=== PATIENT | female | born 2000 | race African-American/Black ===

== ENCOUNTER 2018-07-16 08:50 | Emergency (ER) | payer BC, OTHER ==
[2018-07-16] MEDS ORDERED: ALBUTEROL 2.5 MG/3 ML NEB SOL ONE (09:27)
--- NOTE | 2018-07-16 09:40 | ER ---
Nurse's Notes [facility] Name: Shanon Wen Age: 18 yrs Sex: Female : 2000 Arrival Date: 07/16/2018 Time: 08:54 Bed 12 Private MD: Diagnosis: Acute Viral Syndrome Presentation: 07/16 09:05 Presenting complaint: Patient states: cough, phlegm, runny nose, sore throat today. iw Transition of care: patient was not received from another setting of care. Onset of symptoms was July 16, 2018. Risk Assessment: Do you want to hurt yourself or someone else? Patient reports no desire to harm self or others. Initial Sepsis Screen: Does the patient meet any 2 criteria? No. Patient's initial sepsis screen is negative. Does the patient have a suspected source of infection? No. Patient's initial sepsis screen is negative. Care prior to arrival: None. 09:05 Acuity: KRISS 4 iw 09:05 Method Of Arrival: Ambulatory iw Triage Assessment: 10:00 General: Appears in no apparent distress. Behavior is calm, cooperative. Respiratory: iw Reports cough that is. 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 - Social history:: Smoking status: Patient/guardian denies using tobacco, The patient lives with family. - Family history:: not pertinent. - Ebola Screening: : Patient negative for fever greater than or equal to 101.5 degrees Fahrenheit, and additional compatible Ebola Virus Disease symptoms Patient denies exposure to infectious person Patient denies travel to an Ebola-affected area in the 21 days before illness onset No symptoms or risks identified at this time. - Hospitalizations: : No recent hospitalization is reported. Screenin:00 Abuse screen: Denies threats or abuse. Denies injuries from another. Nutritional iw screening: No deficits noted. Tuberculosis screening: No symptoms or risk factors identified. Fall Risk None identified. Assessment: 09:20 General: Appears in no apparent distress. comfortable. Pain: Denies pain. Neuro: Level iw of Consciousness is awake, alert, obeys commands, Oriented to person, place, time, situation, Moves all extremities. Full function. Cardiovascular: Patient's skin is warm and dry. Respiratory: Airway is patent Respiratory effort is even, unlabored, Breath sounds are clear bilaterally. Respiratory: Reports cough that is productive. GI: No signs and/or symptoms were reported involving the gastrointestinal system. Derm: Skin is intact, is healthy with good turgor. Musculoskeletal: Range of motion: intact in all extremities. Vital Signs: 09:13 BP 123 / 88; Pulse 56; Resp 16; Temp 97.0(TE); Pulse Ox 98% on R/A; Weight 90.72 kg; iw Height 5 ft. 4 in. (162.56 cm); Pain 0/10; 09:13 Body Mass Index 34.33 (90.72 kg, 162.56 cm) iw ED Course: 08:54 Patient arrived in ED. mr 08:56 Sylwia Reyez, RN is Primary Nurse. iw 08:59 Navdeep Warren MD is Attending Physician. wa 09:06 Triage completed. iw 09:21 Arm band placed on. iw 10:00 Patient has correct armband on for positive identification. iw 10:00 No provider procedures requiring assistance completed. Patient did not have IV access iw during this emergency room visit. Administered Medications: 09:20 Drug: Albuterol 2.5 mg Route: Inhalation; iw Outcome: 09:40 Discharge ordered by . wa 10:03 Discharged to home ambulatory. iw 10:03 Condition: good 10:03 Discharge instructions given to patient, Instructed on discharge instructions, follow up and referral plans. medication usage, Demonstrated understanding of instructions, follow-up care, medications, Prescriptions given X 3. 10:04 Patient left the ED. iw Signatures: Amalia Guerra mr Sylwia Reyez RN RN Navdeep Warren MD MD fl Corrections: (The following items were deleted from the chart) 09:21 09:13 Resp 16bpm; 90.72 kg; Height 5 ft. 4 in.; BMI: 34.3; Pain 0/10; iw iw
--- NOTE | 2018-07-16 09:41 | EDPHYS ---
Physician Documentation [facility] Name: Shanon Wen Age: 18 yrs Sex: Female : 2000 Arrival Date: 07/16/2018 Time: 08:54 Bed 12 Private MD: ED Physician Navdeep Warren HPI: 07/16 09:09 This 18 yrs old Black Female presents to ER via Ambulatory with complaints of Cough, wa Congestion. 09:09 The patient or guardian reports cough, that is intermittent, with no sputum, wa congestion. Onset: The symptoms/episode began/occurred 4 day(s) ago. Severity of symptoms: At their worst the symptoms were moderate, in the emergency department the symptoms are unchanged. Modifying factors: The symptoms are alleviated by nothing, the symptoms are aggravated by nothing. Associated signs and symptoms: Pertinent positives: rhinorrhea, sore throat, Pertinent negatives: diarrhea, ear ache, fever, nausea, vomiting. The patient has not experienced similar symptoms in the past. The patient has not recently seen a physician. family members have had similar resp symptoms. 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 - Social history:: Smoking status: Patient/guardian denies using tobacco, The patient lives with family. - Family history:: not pertinent. - Ebola Screening: : Patient negative for fever greater than or equal to 101.5 degrees Fahrenheit, and additional compatible Ebola Virus Disease symptoms Patient denies exposure to infectious person Patient denies travel to an Ebola-affected area in the 21 days before illness onset No symptoms or risks identified at this time. - Hospitalizations: : No recent hospitalization is reported. ROS: 09:11 Eyes: Negative for injury, pain, redness, and discharge, Neck: Negative for injury, wa pain, and swelling, Cardiovascular: Negative for chest pain, palpitations, and edema, Abdomen/GI: Negative for abdominal pain, nausea, vomiting, diarrhea, and constipation, Back: Negative for injury and pain, : Negative for injury, bleeding, discharge, and swelling, MS/Extremity: Negative for injury and deformity, Skin: Negative for injury, rash, and discoloration, Neuro: Negative for headache, weakness, numbness, tingling, and seizure, Psych: Negative for depression, anxiety, suicide ideation, homicidal ideation, and hallucinations. 09:11 Constitutional: Negative for body aches, fatigue, fever, poor PO intake, weight loss. 09:11 ENT: Positive for nose bleed, rhinorrhea, sinus congestion, sore throat, Negative for ear pain, foreign body sensation. 09:11 Respiratory: Positive for cough, with no reported sputum, Negative for shortness of breath. 09:11 All other systems are negative. Exam: 09:12 Constitutional: This is a well developed, well nourished patient who is awake, alert, wa and in no acute distress. Head/Face: Normocephalic, atraumatic. Eyes: Pupils equal round and reactive to light, extra-ocular motions intact. Lids and lashes normal. Conjunctiva and sclera are non-icteric and not injected. Cornea within normal limits. Periorbital areas with no swelling, redness, or edema. Neck: Trachea midline, no thyromegaly or masses palpated, and no cervical lymphadenopathy. Supple, full range of motion without nuchal rigidity, or vertebral point tenderness. No Meningismus. Chest/axilla: Normal chest wall appearance and motion. Nontender with no deformity. No lesions are appreciated. Cardiovascular: Regular rate and rhythm with a normal S1 and S2. No gallops, murmurs, or rubs. Normal PMI, no JVD. No pulse deficits. Abdomen/GI: Soft, non-tender, with normal bowel sounds. No distension or tympany. No guarding or rebound. No evidence of tenderness throughout. Back: No spinal tenderness. No costovertebral tenderness. Full range of motion. Skin: Warm, dry with normal turgor. Normal color with no rashes, no lesions, and no evidence of cellulitis. MS/ Extremity: Pulses equal, no cyanosis. Neurovascular intact. Full, normal range of motion. Neuro: Awake and alert, GCS 15, oriented to person, place, time, and situation. Cranial nerves II-XII grossly intact. Motor strength 5/5 in all extremities. Sensory grossly intact. Cerebellar exam normal. Normal gait. Psych: Awake, alert, with orientation to person, place and time. Behavior, mood, and affect are within normal limits. 09:12 ENT: External ear(s): are unremarkable, TM's: are normal, Nose: is normal, Posterior pharynx: is normal. 09:12 Respiratory: the patient does not display signs of respiratory distress, Respirations: normal, Breath sounds: are clear throughout, Respiratory rate: normal Vital Signs: 09:13 BP 123 / 88; Pulse 56; Resp 16; Temp 97.0(TE); Pulse Ox 98% on R/A; Weight 90.72 kg; iw Height 5 ft. 4 in. (162.56 cm); Pain 0/10; 09:13 Body Mass Index 34.33 (90.72 kg, 162.56 cm) iw MDM: 08:59 Patient medically screened. wa 09:13 Differential Diagnosis: Viral Syndrome Other symptoms consistent with viral etiology. wa will skip flu screen as pt 4 days into illness and as such out of window for tamiflu. will give a neb. reassess. 09:39 Data reviewed: vital signs, nurses notes. Response to treatment: the patient's symptoms wa have markedly improved after treatment. Administered Medications: 09:20 Drug: Albuterol 2.5 mg Route: Inhalation; iw Disposition: 07/16/18 09:40 Discharged to Home. Impression: Acute Viral Syndrome. - Condition is Stable. - Prescriptions for cetirizine 10 mg Oral tablet - take 1 tablet by ORAL route once daily for 10 days; 10 tablet. Prednisone 20 mg Oral Tablet - take 2 tablets by ORAL route once daily for 4 days; 8 tablet. Albuterol Sulfate 90 mcg/actuation Inhalation - inhale 1-2 puff by INHALATION route every 4-6 hours; 1 Inhaler. - Work release form, Medication Reconciliation Form, Thank You Letter, Antibiotic Education, Prescription Opioid Use form. - Follow up: Private Physician; When: 2 - 3 days; Reason: Re-evaluation by your physician. - Problem is new. - Symptoms have improved. - Notes: take medicines as prescribed. do not take any other [id number] decongestants Signatures: Sylwia Reyez RN VIV Navdeep Warren MD MD wa Corrections: (The following items were deleted from the chart) 10:04 09:40 07/16/2018 09:40 Discharged to Home. Impression: Acute Viral Syndrome. Condition iw is Stable. Forms are Medication Reconciliation Form, Thank You Letter, Antibiotic Education, Prescription Opioid Use. Follow up: Private Physician; When: 2 - 3 days; Reason: Re-evaluation by your physician. Problem is new. Symptoms have improved. wa
== END 2018-07-16 10:04 | disposition home or self-care (01) ==
LOC: ER 08:50
DX: B34.9 Viral infection, unspecified (principal)
CPT/HCPCS: 99284

== ENCOUNTER 2018-07-31 14:16 | Emergency (ER) | payer BC ==
--- NOTE | 2018-07-31 16:26 | ER ---
Nurse's Notes [facility] Name: Shanon Wen Age: 18 yrs Sex: Female : 2000 Arrival Date: 07/31/2018 Time: 14:18 Bed 16 Private MD: Diagnosis: Acute upper respiratory infection, unspecified Presentation: 07/31 14:24 Presenting complaint: Mother states: productive cough with yellowish sputum,chills, aa5 fever, and sore throat that began 1 week ago. Pt states "I was here a week ago but I couldn't afford the antibiotics so I didn't take them". Pt states "I also think I have a fever blister on my lip". Transition of care: patient was not received from another setting of care. Onset of symptoms was July 2018. Risk Assessment: Do you want to hurt yourself or someone else? Patient reports no desire to harm self or others. Care prior to arrival: None. 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 - Social history:: Smoking status: Patient/guardian denies using tobacco. - Ebola Screening: : No symptoms or risks identified at this time. Screenin:07 Abuse screen: Denies threats or abuse. Nutritional screening: No deficits noted. em Tuberculosis screening: No symptoms or risk factors identified. Fall Risk None identified. Assessment: 15:00 General: Appears in no apparent distress. comfortable, Behavior is calm, cooperative, em Reports chills for Denies fever. Pain: Complains of pain in chest Pain currently is 5 out of 10 on a pain scale. Neuro: Level of Consciousness is awake, alert, obeys commands, Oriented to person, place, time, situation. Cardiovascular: Heart tones S1 S2 present Capillary refill < 3 seconds Patient's skin is warm and dry. Respiratory: Reports cough that is productive, pain with cough Airway is patent Respiratory effort is even, unlabored, Respiratory pattern is regular, symmetrical, Breath sounds are clear bilaterally. GI: Patient currently denies nausea, vomiting. Derm: Skin is intact, is healthy with good turgor, Skin is pink, warm \\T\\ dry. Musculoskeletal: Range of motion: intact in all extremities. 15:10 Reassessment: Patient appears in no apparent distress at this time. I agree with the sv above assessment. Vital Signs: 14:26 Pulse 78; Resp 18 S; Temp 97.4(TE); Pulse Ox 100% on R/A; Weight 90.72 kg (R); Height 5 aa5 ft. 4 in. (162.56 cm) (R); Pain 5/10; 14:29 BP 105 / 66; aa5 14:26 Body Mass Index 34.33 (90.72 kg, 162.56 cm) aa5 ED Course: 14:18 Patient arrived in ED. as 14:24 Arm band placed on. aa5 14:26 Triage completed. aa5 14:30 Julio Cesar Barrett LVN is Primary Nurse. em 14:55 Eduard Diane PA is PHCP. jr8 14:55 Flex Avila MD is Attending Physician. jr8 15:38 Patient has correct armband on for positive identification. Bed in low position. Call em light in reach. 16:27 Influenza Screen (a \\T\\ B) Sent. sv 16:27 Strep Sent. sv 16:31 No provider procedures requiring assistance completed. Patient did not have IV access sv during this emergency room visit. Administered Medications: No medications were administered Outcome: 16:26 Discharge ordered by . jr8 16:31 Discharged to home ambulatory. sv 16:31 Condition: stable 16:31 Discharge instructions given to patient, Instructed on discharge instructions, follow up and referral plans. medication usage, Demonstrated understanding of instructions, follow-up care, medications, Prescriptions given X 2. 16:32 Patient left the ED. sv Signatures: Glenis Koehler RN RN Julio Cesar Barrett LVN TICKET SALES SUPERVISOR em Mary Ellen Coffey Audri, RN RN aa Eduard Diane PA PA jr8 Corrections: (The following items were deleted from the chart) 14:27 14:24 Presenting complaint: Mother states: productive cough with yellowish aa5 sputum,chills, fever that began 1 week ago. Pt states "I was here a week ago but I couldn't afford the antibiotics so I didn't take them". Pt states "I also think I have a fever blister on my lip" aa5
--- NOTE | 2018-07-31 16:26 | EDPHYS ---
Physician Documentation [facility] Name: Shanon eWn Age: 18 yrs Sex: Female : 2000 Arrival Date: 07/31/2018 Time: 14:18 Bed 16 Private MD: ED Physician Flex Avila HPI: 07/31 15:44 This 18 yrs old Black Female presents to ER via Ambulatory with complaints of Fever, jr8 Cough, Mouth Problem. 15:44 The patient reports fever, not measured (subjective). Onset: The symptoms/episode jr8 began/occurred acutely, 2 day(s) ago. Modifying factors: there are no obvious modifying factors. Associated signs and symptoms: Pertinent positives: cough, sore throat. Severity of symptoms: At their worst the symptoms were mild in the emergency department the symptoms are unchanged. The patient has not experienced similar symptoms in the past. The patient has not recently seen a physician. 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 - Social history:: Smoking status: Patient/guardian denies using tobacco. - Ebola Screening: : No symptoms or risks identified at this time. ROS: 15:44 Eyes: Negative for injury, pain, redness, and discharge, Neck: Negative for injury, jr8 pain, and swelling, Cardiovascular: Negative for chest pain, palpitations, and edema, Abdomen/GI: Negative for abdominal pain, nausea, vomiting, diarrhea, and constipation, Back: Negative for injury and pain, MS/Extremity: Negative for injury and deformity, Skin: Negative for injury, rash, and discoloration, Neuro: Negative for headache, weakness, numbness, tingling, and seizure. 15:44 Constitutional: Positive for fever. 15:44 ENT: Positive for sore throat, Negative for drainage from ear(s), ear pain, rhinorrhea, sinus congestion, difficulty swallowing, difficulty handling secretions, hoarseness. 15:44 Respiratory: Positive for cough, Negative for dyspnea on exertion, shortness of breath, sputum production, wheezing. Exam: 15:44 Eyes: Pupils equal round and reactive to light, extra-ocular motions intact. Lids and jr8 lashes normal. Conjunctiva and sclera are non-icteric and not injected. Cornea within normal limits. Periorbital areas with no swelling, redness, or edema. ENT: Nares patent. No nasal discharge, no septal abnormalities noted. Tympanic membranes are normal and external auditory canals are clear. Oropharynx with redness. No swelling, or masses, exudates, or evidence of obstruction, uvula midline. Mucous membranes moist. Neck: Trachea midline, no thyromegaly or masses palpated, and no cervical lymphadenopathy. Supple, full range of motion without nuchal rigidity, or vertebral point tenderness. No Meningismus. Cardiovascular: Regular rate and rhythm with a normal S1 and S2. No gallops, murmurs, or rubs. Normal PMI, no JVD. No pulse deficits. Respiratory: Lungs have equal breath sounds bilaterally, clear to auscultation and percussion. No rales, rhonchi or wheezes noted. No increased work of breathing, no retractions or nasal flaring. Abdomen/GI: Soft, non-tender, with normal bowel sounds. No distension or tympany. No guarding or rebound. No evidence of tenderness throughout. Back: No spinal tenderness. No costovertebral tenderness. Full range of motion. Skin: Warm, dry with normal turgor. Normal color with no rashes, no lesions, and no evidence of cellulitis. MS/ Extremity: Pulses equal, no cyanosis. Neurovascular intact. Full, normal range of motion. Neuro: Awake and alert, GCS 15, oriented to person, place, time, and situation. Cranial nerves II-XII grossly intact. Motor strength 5/5 in all extremities. Sensory grossly intact. Cerebellar exam normal. Normal gait. 15:44 Head/face: Noted is fever blister noted to left upper lip. Vital Signs: 14:26 Pulse 78; Resp 18 S; Temp 97.4(TE); Pulse Ox 100% on R/A; Weight 90.72 kg (R); Height 5 aa5 ft. 4 in. (162.56 cm) (R); Pain 5/10; 14:29 BP 105 / 66; aa5 14:26 Body Mass Index 34.33 (90.72 kg, 162.56 cm) aa5 MDM: 15:14 Patient medically screened. 8 16:25 Data reviewed: vital signs, nurses notes, lab test result(s), Flu: negative and as a jr8 result, I will discharge patient. Data interpreted: Pulse oximetry: on room air is 100 %. Interpretation: normal. Counseling: I had a detailed discussion with the patient and/or guardian regarding: the historical points, exam findings, and any diagnostic results supporting the discharge/admit diagnosis, lab results, the need for outpatient follow up, a family practitioner, to return to the emergency department if symptoms worsen or persist or if there are any questions or concerns that arise at home. 07/31 15:14 Order name: Strep jr8 07/31 15:14 Order name: Influenza Screen (a \T\ B) jr8 07/31 16:05 Order name: Group A Streptococcus Rapid Sc; Complete Time: 16:14 EDMS 07/31 16:05 Order name: Influenza Screen (A ; Complete Time: 16:14 EDMS Administered Medications: No medications were administered Disposition: 07/31/18 16:26 Discharged to Home. Impression: Acute upper respiratory infection, unspecified. - Condition is Stable. - Discharge Instructions: Upper Respiratory Infection, Adult, Viral Respiratory Infection. - Prescriptions for Tessalon Perles 100 mg Oral Capsule - take 1 capsule by ORAL route every 8 hours As needed; 15 capsule. Guaifenesin AC 10- 100 mg/5 mL Oral Liquid - take 10 milliliter by ORAL route every 4 hours As needed; 240 milliliter. - Work release form, Medication Reconciliation Form, Thank You Letter, Antibiotic Education, Prescription Opioid Use form. - Follow up: Private Physician; When: 1 week; Reason: Recheck today's complaints, Continuance of care, Re-evaluation by your physician. - Problem is new. - Symptoms have improved. Addendum: 08/03/2018 07:10 Co-signature as Attending Physician, Flex Avila MD I agree with the assessment and k dr plan of care. Signatures: Dispatcher [employer] EDGlenis Matos RN RN sv Rittger, Kevin, MD MD [facility] Laura Gates RN RN aa5 Eduard Diane PA PA jr8 Corrections: (The following items were deleted from the chart) 07/31 16:32 16:26 07/31/2018 16:26 Discharged to Home. Impression: Acute upper respiratory sv infection, unspecified. Condition is Stable. Forms are Medication Reconciliation Form, Thank You Letter, Antibiotic Education, Prescription Opioid Use. Follow up: Private Physician; When: 1 week; Reason: Recheck today's complaints, Continuance of care, Re-evaluation by your physician. Problem is new. Symptoms have improved. jr8
== END 2018-07-31 16:32 | disposition home or self-care (01) ==
LOC: ER 14:16
DX: J06.9 Acute upper respiratory infection, unspecified (principal)
CPT/HCPCS: 87070; 87081; 87804; 99283

== ENCOUNTER 2020-04-17 19:04 | Emergency (ER) | payer BC, SELFPAY ==
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
[2020-04-17] MEDS ORDERED: IBUPROFEN 400 MG TAB ONE (20:13)
[2020-04-17] MEDS ORDERED: TETANUS & DIPHTHERIA TOX,ADULT 0.5 ML VIAL ONE (20:13)
[2020-04-17] MEDS ORDERED: IBUPROFEN 200 MG TAB PO ONE (20:13)
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
[2020-04-18 03:48] VITALS: BP 139/83; TEMP 97.2; O2SAT 100
== END 2020-04-17 20:26 | disposition home or self-care (01) ==
LOC: ER 19:04
DX: S93.401A Sprain of unspecified ligament of right ankle, initial encounter (principal); W05.1XXA Fall from non-moving nonmotorized scooter, initial encounter; Y93.9 Activity, unspecified; Y92.9 Unspecified place or not applicable; Z23 Encounter for immunization
CPT/HCPCS: 90471; 90714; 99283